=== PATIENT | male | born 1990 | race Caucasian/White ===

== ENCOUNTER 2020-08-02 18:19 | Emergency (ER) | payer SELFPAY ==
[~2020-08-02 18:19] MED LIST: Sodium Chloride 0.9% 1,000 ML BAG ONE
[2020-08-02 18:49] LABS: Bilirubin Negative (Negative); Blood, Urine Moderate (Negative); Clarity Cloudy (Clear); Glucose, Urine (Dipstick) Negative (Negative); Ketone, Urine Negative (Negative); Leukocyte Large (Negative); Nitrite Negative (Negative); Protein, Urine (Dipstick) Trace mg/dL (Neg-Trace); Urobilinogen 0.2 mg/dL (Less than 2); pH, Urine 5.5 (5.0-9.0)
[2020-08-02 18:51] LABS: Bacteria/HPF 1+ HPF (None Seen); Specific Gravity, Urine 1.028 (1.002-1.036); Squamous Epithelial None Seen HPF (0-3); WBC/HPF Greater Than 50 HPF (0-3)
[2020-08-02] MEDS ORDERED: cefTRIAXone\\ROCEPHIN 1 GM VIAL ONE (19:16)
[2020-08-02] MEDS ORDERED: Ketorolac Tromethamine 30 MG/ML VIAL ONE (19:16)
[2020-08-02 19:30] LABS: #Basophils 0.1 thou/uL (0.0-0.2); #Eosinphils 0.3 thou/uL (0.0-0.7); #Lymphocytes 1.9 thou/uL (1.20-3.40); #Monocytes 1.2 thou/uL (0.11-0.59); %Basophils 0.8 % (0.0-1.0); %Eosinophils 2.5 % (0.0-10.0); %Lymphocytes 15.2 % (21.0-51.0); %Monocytes 9.5 % (0.0-10.0); Hemoglobin 14.8 g/dL (14.0-18.0); Mean Corpuscular HGB CONC 32.4 g/dL (32.0-36.0); Mean Corpuscular Hemoglobin 29.5 pg (27.0-31.0); Mean Corpuscular Volume 91.1 fL (78.0-98.0); Mean Platelet Volume 6.8 fL (7.4-10.4); Platelet Count 217 thou/uL (130-400); RBC Distribution Width 11.3 % (11.5-14.5); Red Blood Cell (RBC) Count 5.02 mill/uL (4.70-6.10); White Blood Cell (WBC) Count 12.5 thou/uL (4.8-10.8)
--- NOTE | 2020-08-02 19:40 | CT ---
CT of abdomen and pelvis: 08/02/2020 COMPARISON: None HISTORY: Right flank pain, history of renal stone disease TECHNIQUE: Axial CT imaging at 5 mm intervals from lung bases through pubic symphysis without contras t. Coronal reformatted imaging obtained. FINDINGS: Lack of contrast media limits assessment of the viscera, bowel, vascular structures, and fo r lymphadenopathy. The imaged lung bases appear unremarkable. No free intraperitoneal air is noted. The liver and spleen appear grossly unremarkable. The gallbladder is contracted and poorly assessed o n this exam. The pancreas and the adrenal glands appear grossly unremarkable. There is no evidence for hydronephrosis on either side. There is no left-sided nephrolithiasis. There is a nonobstructing intrarenal calculus within the upper pole of the right kidney measuring 6 m m. There is no evidence for obstructive uropathy on the right. Limited assessment of the bowel demonstrates no evidence for inflammatory change or obstruction. Ther e is significant stool seen throughout the colon. The appendix demonstrates no evidence for inflammatory change. Review of the osseous structures demonstrates no worrisome lytic or blastic bone lesions. IMPRESSION: Nonobstructing intrarenal calculus on the right. No evidence for obstructive uropathy on either side..
[2020-08-02 19:46] LABS: Anion Gap 15 mmol/L (10-20); BUN (Urea Nitrogen) 16 mg/dL (8.9-20.6); Calc. Creatinine Clearance 0 mL/min (70-130); Calcium 8.4 mg/dL (7.8-10.44); Carbon Dioxide 24 mmol/L (22-29); Chloride 105 mmol/L (98-107); Glucose 98 mg/dL (70-105); Potassium 4.1 mmol/L (3.5-5.1); Sodium 140 mmol/L (136-145)
== END 2020-08-02 20:14 | disposition home or self-care (01) ==
LOC: MADERS 18:19
DX: N30.00 Acute cystitis without hematuria (principal)
CPT/HCPCS: 74176; 80048; 81001; 85025; 87491; 87591; 96374; 96375; J0696; J1885; J7050

== ENCOUNTER 2021-01-29 19:04 | Emergency (ER) | payer SELFPAY ==
[2021-01-30 14:56] LABS: SARS-CoV-2 PCR by NAA Not Detected (NotDetected)
== END 2021-01-29 20:40 | disposition home or self-care (01) ==
LOC: MADERS 19:04
DX: J06.9 Acute upper respiratory infection, unspecified (principal); F17.220 Nicotine dependence, chewing tobacco, uncomplicated; Z20.822 Contact with and (suspected) exposure to COVID-19; Z87.442 Personal history of urinary calculi
CPT/HCPCS: 99283; U0003; U0005